=== PATIENT | male | born 1990 | race Caucasian/White ===

== ENCOUNTER 2018-12-01 10:41 | Emergency (ER) | payer SELFPAY ==
--- NOTE | 2018-12-01 11:04 | EDM.PDOC ---
ED HPI GENERAL MEDICAL PROBLEM - General Chief Complaint: Skin Complaint Stated Complaint: SWELLING AND REDNESS OF HANDS Time Seen by Provider: 12/01/18 11:04 Source of Information: Reports: Patient, RN Notes Reviewed History Limitations: Reports: No Limitations - History of Present Illness INITIAL COMMENTS - FREE TEXT/NARRATIVE: Patient is a 28-year-old male who presents to the ED for the evaluation of swollen right hands. The patient notes he has a history of eczema, that he was diagnosed when he was in high school. The patient first noticed this rash to started roughly 3 weeks ago, with some small raised bumps that were itchy, he did use some topical steroid cream and this got better. However last night he states that his hands became increasingly red and swollen. He states he has some betamethasone cream on the rash that he has had from forever ago. He is not sure when he got the last betamethasone, so is unsure as if it is potent or not. He notes his hands to be swollen and painful. He can hardly make a fist with his left hand without being in too much pain. 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 The patient has used several pxho-owo-gaxsweh lotions and creams such as Benadryl allergy cream and hydrocortisone cream with little to no benefit. The patient did take some ibuprofen this morning, 400 mg roughly at 3 AM. He would rate his pain at a 7 out of 10 today. Him and his girlfriend both deny any change of soaps or colognes or otherwise in the household as well. Bilateral Hand Pain Score (Numeric/FACES): 7 - Related Data Allergies Allergy/AdvReac Type Severity Reaction Status Date / Time No Known Allergies Allergy Verified 12/01/18 10:49 Home Meds: Home Meds Albuterol Inhaler. 2 puff INH Q4H PRN 12/01/18 [History] Betamethasone. 12/01/18 [History] Fluticasone Propion/Salmeterol [Fluticasone-Salmeterol 250-50] 1 puff INH BID [History] Levothyroxine 150 mcg PO ACBREAKFAST 12/01/18 [History] Montelukast [Singulair] 10 mg PO DAILY 12/01/18 [History] Sertraline [Zoloft] 100 mg PO DAILY 12/01/18 [History] Testosterone Gel. 12/01/18 [History] Triamcinolone Acetonide [Triamcinolone Acetonide 0.5%] 15 gm .XX ASDIRECTED #1 tube 12/01/18 [Rx] predniSONE [Deltasone] 20 mg PO ASDIRECTED #15 tablet 12/01/18 [Rx] Past Medical History Respiratory History: Reports: Asthma Genitourinary History: Reports: Renal Calculus Other Genitourinary History: Low testosterone Endocrine/Metabolic History: Reports: Hypothyroidism Other Hematologic History: Low testosterone - Past Surgical History Other Male Surgeries/Procedures: Patient had a kidney stone that was stuck removed - required 2 surgeries. Social & Family History - Family History Family Medical History: Noncontributory - Recreational Drug Use Recreational Drug Use: No ED ROS GENERAL - Review of Systems Review Of Systems: See Below Constitutional: Reports: No Symptoms HEENT: Reports: No Symptoms Respiratory: Reports: No Symptoms Cardiovascular: Reports: No Symptoms Endocrine: Reports: No Symptoms GI/Abdominal: Reports: No Symptoms : Reports: No Symptoms Musculoskeletal: Reports: No Symptoms Skin: Reports: Rash (SEE HPI) Neurological: Reports: No Symptoms Psychiatric: Reports: No Symptoms Hematologic/Lymphatic: Reports: No Symptoms Immunologic: Reports: No Symptoms ED EXAM, SKIN/RASH Exam: See Below Exam Limited By: No Limitations General Appearance: Alert, WD/WN, No Apparent Distress Respiratory/Chest: No Respiratory Distress, Lungs Clear, Normal Breath Sounds, No Accessory Muscle Use, Chest Non-Tender Cardiovascular: Normal Peripheral Pulses, Regular Rate, Rhythm, No Murmur Peripheral Pulses: 3+: Radial (L), Radial (R) Extremities: Non-Tender, Normal Capillary Refill, Limited Range of Motion (of hands, d/t pain and swelling.), Increased Warmth (of bothhands), Redness (of both hands) Neurological: Alert, Oriented, Normal Cognition, No Motor/Sensory Deficits Psychiatric: Normal Affect, Normal Mood Skin: Warm, Dry, Intact, Erythema (of both hands), Increased Warmth (of both hands), Rash (raised maculopapular diffuse rash that is itchy, this involves mainly the back of the patient's hands, and he does have some areas of cracking on his left medial thumb. This rash extends to just above both wrists on the dorsal aspect.) Location, Skin: Upper Extremity, Right, Upper Extremity, Left Characteristics: Maculopapular, Patchy, Urticarial, Erythematous Associated features: Warmth, Tenderness, Swelling, Inflammation. No: Induration , Scaling, Crusting, Weeping Course - Vital Signs Last Recorded V/S: Last Vital Signs Temp Pulse 97 12/01/18 10:50 Resp 16 12/01/18 10:50 BP 147/83 H 12/01/18 10:50 Pulse Ox 96 12/01/18 10:50 - Orders/Labs/Meds Meds: Medications Discontinued Medications Generic Name Dose Route Start Last Admin Trade Name Cosmoq PRN Reason Stop Dose Admin Dexamethasone 10 mg 12/01/18 11:19 12/01/18 11:29 Dexamethasone IM 12/01/18 11:20 10 mg ONETIME ONE Administration Ketorolac Tromethamine 30 mg 12/01/18 11:19 12/01/18 11:28 Toradol IM 12/01/18 11:20 30 mg ONETIME ONE Administration - Re-Assessments/Exams Free Text/Narrative Re-Assessment/Exam: 12/01/18 11:31 Patient presents to the ED for evaluation of a rash. The rash is most consistent with a flare of his eczema, however cannot rule out some type of contact dermatitis. Have ordered 10 mg dexamethasone and 30 mg IM Toradol to be given in the ED for initial management, and have provided the patient with a prednisone burst and some triamcinolone cream for the affected areas. He will be directed on the use of the triamcinolone cream and also recommend that he use other hand creams like Cera-ve for moisturization of the area. Departure - Departure Time of Disposition: 11:54 Disposition: Home, Self-Care 01 Condition: Fair Clinical Impression: Eczema of both hands - Discharge Information *PRESCRIPTION DRUG MONITORING PROGRAM REVIEWED*: No *COPY OF PRESCRIPTION DRUG MONITORING REPORT IN PATIENT JEREMI: No Prescriptions: predniSONE [Deltasone] 20 mg PO ASDIRECTED #15 tablet Triamcinolone Acetonide [Triamcinolone Acetonide 0.5%] 15 gm .XX ASDIRECTED #1 tube Instructions: Hand Dermatitis, [address] Referrals: Nery Ha NP [Primary Care Provider] - Forms: ED Department Discharge, ED Return to Work/School Form Additional Instructions: You have been evaluated in the ED today for the rash on your hands. You have been given a 10 mg injection of dexamethasone (steroid) and a 30 mg injection of Toradol (anti-inflammatory) for initial management in the ED. You have been given a prescription for prednisone, please take as directed, you have also been given a prescription for triamcinolone cream please use sparingly to the areas affected on your hands for roughly 2 weeks, then switch to an oyxt-los-hkvmytd hydrocortisone cream. Recommend that you use hand creams like Cera-ve for moisturization of the areas. You may want to try to use gloves at work so that the cream stays on your hand and is not rub off onto things are working on. You may take 600 mg of ibuprofen every 6 hours as needed for further swelling/ pain relief. However the prednisone should provide you pretty good relief in a short amount of time. Please return to the ED if your symptoms should change or worsen.
[2018-12-01] MEDS ORDERED: Ketorolac 30 MG/ML SDV IM ONE (11:19)
[2018-12-01] MEDS ORDERED: Dexamethasone 10 MG/ML SDV IM ONE (11:19)
== END 2018-12-01 11:58 | disposition home or self-care (01) ==
LOC: JD.ED 10:41
DX: L30.9 Dermatitis, unspecified (principal); E03.9 Hypothyroidism, unspecified; J45.909 Unspecified asthma, uncomplicated; Z79.899 Other long term (current) drug therapy
CPT/HCPCS: 96372; 99282; J1100; J1885; 99283

== ENCOUNTER 2019-01-25 06:45 | Emergency (ER) | payer SELFPAY ==
[2019-01-25] MEDS ORDERED: Orphenadrine 100 MG Tab.ER PO STA (07:13)
--- NOTE | 2019-01-25 07:19 | EDM.PDOC ---
ED HPI GENERAL MEDICAL PROBLEM - General Chief Complaint: Neck Problem Stated Complaint: NECK INJURY Time Seen by Provider: 01/25/19 06:55 Source of Information: Reports: Patient, Family (), RN Notes Reviewed History Limitations: Reports: No Limitations - History of Present Illness INITIAL COMMENTS - FREE TEXT/NARRATIVE: The patient states that he was using some resistance bands to work out 2 days ago. He states that he had bands and his back, extending his arms. He developed some pain to his superior left trapezius that night. The pain improved yesterday , but became worse last night, and even worse again this morning. The patient denies any direct trauma to the area. No prior similar symptoms. The patient's states that she has been applying Biofreeze to the area. The patient's PCP is Nery Ha NP. Neck Pain Score (Numeric/FACES): 8 - Related Data Allergies Allergy/AdvReac Type Severity Reaction Status Date / Time No Known Allergies Allergy Verified 01/25/19 06:54 Home Meds: Home Meds Albuterol Inhaler. 2 puff INH Q4H PRN 12/01/18 [History] Levothyroxine 150 mcg PO ACBREAKFAST 12/01/18 [History] Montelukast [Singulair] 10 mg PO DAILY 12/01/18 [History] Sertraline [Zoloft] 100 mg PO DAILY 12/01/18 [History] Orphenadrine [Norflex] 1 tab PO Q12H PRN #14 tab.er 01/25/19 [Rx] Past Medical History Respiratory History: Reports: Asthma Genitourinary History: Reports: Renal Calculus Psychiatric History: Reports: Depression Endocrine/Metabolic History: Reports: Hypothyroidism, Obesity/BMI 30+ - Past Surgical History Male Surgical History: Reports: Lithotripsy (ESWL) (laser lithotripsy x 2) Social & Family History - Family History Family Medical History: Noncontributory - Tobacco Use Smoking Status *Q: Former Smoker Years of Tobacco use: 10 Packs/Tins Daily: 1 Month/Year Tobacco Last Used: Quit 2015 - Alcohol Use Alcohol Use History: Yes Alcohol Use Frequency: Socially - Recreational Drug Use Recreational Drug Use: Yes Drug Use in Last 12 Months: Yes Recreational Drug Type: Reports: Marijuana/Hashish (last smoked Apr 2018) - Living Situation & Occupation Living situation: Reports: , with Spouse 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 ED EXAM, GENERAL - Physical Exam Exam: See Below Exam Limited By: No Limitations General Appearance: Alert, WD/WN, No Apparent Distress Eye Exam: Bilateral Eye: EOMI, Normal Inspection Ears: Normal External Exam, Hearing Grossly Normal Nose: Normal Inspection Throat/Mouth: Normal Inspection, Normal Lips, Normal Voice, No Airway Compromise Head: Atraumatic, Normocephalic Neck: Non-Tender, Full Range of Motion, Other (The patient is more comfortable with his head tilted to the right, but he is able to straighten his neck) Respiratory/Chest: No Respiratory Distress, Lungs Clear, Normal Breath Sounds, No Accessory Muscle Use Cardiovascular: Normal Peripheral Pulses, Regular Rate, Rhythm, No Edema, No Gallop, No JVD, No Murmur, No Rub Peripheral Pulses: 4+: Radial (L), Radial (R) GI/Abdominal: Normal Bowel Sounds, Soft, Non-Tender, No Organomegaly, No Distention, No Abnormal Bruit, No Mass, Other (Obese) (Male) Exam: Deferred Rectal (Males) Exam: Deferred Back Exam: Normal Inspection, Full Range of Motion, NT Extremities: Normal Range of Motion, No Pedal Edema, Normal Capillary Refill, Other (Muscle spasm noted to the upper left trapezius muscle) Neurological: Alert, Oriented, Normal Cognition, No Motor/Sensory Deficits Psychiatric: Normal Affect Skin Exam: Warm, Dry, Intact, Normal Color, No Rash Course - Vital Signs Last Recorded V/S: Last Vital Signs Temp 35.9 C 01/25/19 06:50 Pulse 80 01/25/19 06:50 Resp 16 01/25/19 06:50 BP 151/89 H 01/25/19 06:50 Pulse Ox - Orders/Labs/Meds Meds: Medications Discontinued Medications Generic Name Dose Route Start Last Admin Trade Name Freq PRN Reason Stop Dose Admin Orphenadrine Citrate 100 mg 01/25/19 07:13 01/25/19 07:24 Norflex PO 01/25/19 07:14 100 mg ONETIME STA Administration - Re-Assessments/Exams Free Text/Narrative Re-Assessment/Exam: 01/25/19 07:14 By both history and physical examination, the patient is suffering from upper left trapezius muscle spasm. I do not see an indication for an imaging study. I will start the patient on Norflex, and have him take irok-lob-eflbnjz ibuprofen in addition. Departure - Departure Time of Disposition: 07:15 Disposition: Home, Self-Care 01 Condition: Good Clinical Impression: Back muscle spasm - Discharge Information *PRESCRIPTION DRUG MONITORING PROGRAM REVIEWED*: Not Applicable *COPY OF PRESCRIPTION DRUG MONITORING REPORT IN PATIENT JEREMI: Not Applicable Prescriptions: Orphenadrine [Norflex] 1 tab PO Q12H PRN #14 tab.er PRN Reason: Muscle Spasm Instructions: Muscle Cramps and Spasms, [id number] Referrals: Nery Ha NP [Primary Care Provider] - Forms: ED Department Discharge, ED Return to Work/School Form Additional Instructions: You were seen in the emergency room for pain in the back of your upper left shoulder, that developed after working out. Based on your history and physical examination, you are suffering from a muscle spasm of your trapezius muscle. You have been started on the muscle relaxant Norflex. A prescription for Norflex has been sent to the [facility], located in the [facility] grocery store. Take one tablet of Norflex every 12 hours, starting this evening , 01/25/2019, as prescribed. In addition to Norflex, we recommend that you take khbe-ucw-xehaakd ibuprofen, 2 -3 tablets (400-600 mg) every 8 hours, with food. A note for work has been provided to you. If any other problems, please do not hesitate to return to the ER.
== END 2019-01-25 07:35 | disposition home or self-care (01) ==
LOC: JD.ED 06:45
DX: M62.830 Muscle spasm of back (principal); F32.9 Major depressive disorder, single episode, unspecified; E66.9 Obesity, unspecified; J45.909 Unspecified asthma, uncomplicated; E03.9 Hypothyroidism, unspecified; Z79.899 Other long term (current) drug therapy; Z87.891 Personal history of nicotine dependence
CPT/HCPCS: 99283; A9270

== ENCOUNTER 2019-04-19 16:57 | Emergency (ER) | payer OTHER, BC ==
[2019-04-19] MEDS ORDERED: Acetaminophen/oxyCODONE 325-5 MG Tab PO ONE (17:08)
[2019-04-19] MEDS ORDERED: Ondansetron 4 MG Tab.DIS PO ONE (17:08)
--- NOTE | 2019-04-19 17:10 | EDM.PDOC ---
ED HPI GENERAL MEDICAL PROBLEM - General Chief Complaint: Upper Extremity Injury/Pain Stated Complaint: RT HAND INJURY Time Seen by Provider: 04/19/19 17:00 Source of Information: Reports: Patient History Limitations: Reports: No Limitations - History of Present Illness INITIAL COMMENTS - FREE TEXT/NARRATIVE: 28-year-old male presents for evaluation and treatment and injury to the right hand. Patient reports he was at work. States that he crushed his right hand under 200 pound auger. Currently complains of pain to the right fifth finger. He is reporting pain, swelling and numbness to the right fifth finger. Occurred about half an hour prior to arrival. No obvious open fractures. He reports pain to the entire fifth finger. Patient is right-handed. Tetanus is up-to-date. Right Hand Pain Score (Numeric/FACES): 10 - Related Data Allergies Allergy/AdvReac Type Severity Reaction Status Date / Time blueberry Allergy Other Verified 04/19/19 17:04 walnut Allergy Other Verified 04/19/19 17:04 Home Meds: Home Meds Albuterol Inhaler. 2 puff INH Q4H PRN 12/01/18 [History] Levothyroxine 150 mcg PO ACBREAKFAST 12/01/18 [History] Montelukast [Singulair] 10 mg PO DAILY 12/01/18 [History] Sertraline [Zoloft] 100 mg PO DAILY 12/01/18 [History] Fluticasone/Salmeterol [Advair Hfa 230-21 Mcg Inhaler] 1 puff PO BID 04/19/19 [ History] Past Medical History Respiratory History: Reports: Asthma Genitourinary History: Reports: Renal Calculus Other Genitourinary History: Low testosterone Psychiatric History: Reports: Depression Endocrine/Metabolic History: Reports: Hypothyroidism, Obesity/BMI 30+ Other Hematologic History: Low testosterone - Past Surgical History Male Surgical History: Reports: Lithotripsy (ESWL) (laser lithotripsy x 2) Social & Family History - Family History Family Medical History: Noncontributory - Tobacco Use Smoking Status *Q: Current Every Day Smoker Years of Tobacco use: 15 Packs/Tins Daily: 1 - Caffeine Use Caffeine Use: Reports: Coffee, Energy Drinks, Soda - Recreational Drug Use Recreational Drug Use: No - Living Situation & Occupation Living situation: Reports: , with Spouse 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) Review of Systems - Review of Systems Review Of Systems: See Below Musculoskeletal: Reports: Hand Pain (Right hand fifth finger), Other (swelling right fifth digit) Skin: Denies: Wound Neurological: Reports: Numbness (Right hand fifth finger) ED EXAM, GENERAL - Physical Exam Exam: See Below Exam Limited By: No Limitations General Appearance: Alert, WD/WN, No Apparent Distress, Obese Respiratory/Chest: No Respiratory Distress Cardiovascular: Normal Peripheral Pulses, Regular Rate, Rhythm Peripheral Pulses: 3+: Radial (R) Extremities: Normal Inspection (No obvious deformities), Normal Capillary Refill , Other (Reports pain to the entire right fifth digit. Has full range of motion of the finger; swelling to the finger. Reports decreased sensation to light touch.) Course - Vital Signs Last Recorded V/S: Last Vital Signs Temp 97.2 F 04/19/19 17:03 Pulse 93 04/19/19 17:03 Resp 15 04/19/19 17:03 BP 127/89 04/19/19 17:03 Pulse Ox 97 04/19/19 17:03 - Orders/Labs/Meds Orders: Active Orders 24 hr Category Date Time Status Hand Comp Min 3V Rt [CR] Stat Exams 04/19/19 17:08 Taken Durable Medical Equipment for Discharge [DME for Oth 04/19/19 18:01 Ordered Discharge] [COMM] Stat Meds: Medications Discontinued Medications Generic Name Dose Route Start Last Admin Trade Name Cosmoq PRN Reason Stop Dose Admin Ondansetron HCl 4 mg 04/19/19 17:08 04/19/19 17:13 Zofran Odt PO 04/19/19 17:09 4 mg ONETIME ONE Administration Oxycodone/Acetaminophen 2 tab 04/19/19 17:08 04/19/19 17:12 Percocet 325-5 Mg PO 04/19/19 17:09 2 tab ONETIME ONE Administration - Radiology Interpretation Free Text/Narrative:: X-ray of the right hand shows a nondisplaced fracture of the right hand distal fifth phalanx. reviewed by myself and Dr. Serrano. Formal radiology read pending. - Re-Assessments/Exams Free Text/Narrative Re-Assessment/Exam: 04/19/19 18:10 Reviewed the x-ray results with the patient. Will place an aluminum form splint and karlie tape the fifth of fourth digits together. They request a sling as he' ll be walking around [place] tomorrow and they would like something help with elevation. Will discharge him home. Recommend follow-up with orthopedics. Discharge instructions as documented. Departure - Departure Time of Disposition: 18:19 Disposition: Home, Self-Care 01 Condition: Good Clinical Impression: Distal phalanx or phalanges, closed fracture - Discharge Information *PRESCRIPTION DRUG MONITORING PROGRAM REVIEWED*: No *COPY OF PRESCRIPTION DRUG MONITORING REPORT IN PATIENT JEREMI: No Referrals: Nery Ha, [employer] [employer] [facility] [Primary Care Provider] - Forms: ED Department Discharge, ED Return to Work/School Form Additional Instructions: Keep the splint on and karlie taped to the fourth finger at all times until seen by ortho. Follow-up with orthopedics in 2 weeks. Here in [place] recommend Dr. Benito. Call [phone] to schedule with him. His partner Dr. Gray from [place] also comes and is a hand specialist. You may also see him when he is here, call [facility] to schedule with him. Cbub-kjj-hjtjxli Tylenol or Motrin as needed for pain relief. Ice and elevate the finger is much as you are able to. Please return to ER if your symptoms change or worsen. - My Orders Last 24 Hours: My Active Orders 04/19/19 17:08 Hand Comp Min 3V Rt [CR] Stat 04/19/19 18:01 Durable Medical Equipment for Discharge [DME for Discharge] [COMM] Stat - Assessment/Plan Last 24 Hours: My Active Orders 04/19/19 17:08 Hand Comp Min 3V Rt [CR] Stat 04/19/19 18:01 Durable Medical Equipment for Discharge [DME for Discharge] [COMM] Stat
--- NOTE | 2019-04-22 07:15 | CR ---
Right hand: Four views of the right hand were obtained. Comparison: No previous hand study. Joint spaces are preserved. Tuft fracture noted within the distal 5th finger. Alignment remains close to anatomic. No additional fracture or other abnormality is seen. Impression: 1. Tuft fracture within the distal 5th finger. Diagnostic code #3
== END 2019-04-19 18:30 | disposition home or self-care (01) ==
LOC: JD.ED 16:57
DX: S62.666A Nondisplaced fracture of distal phalanx of right little finger, initial encounter for closed fracture (principal); J45.909 Unspecified asthma, uncomplicated; E03.9 Hypothyroidism, unspecified; F32.9 Major depressive disorder, single episode, unspecified; E66.9 Obesity, unspecified; Z68.36 Body mass index [BMI] 36.0-36.9, adult; F17.210 Nicotine dependence, cigarettes, uncomplicated; Z91.018 Allergy to other foods; Z79.899 Other long term (current) drug therapy; W23.0XXA Caught, crushed, jammed, or pinched between moving objects, initial encounter; Y99.0 Civilian activity done for income or pay
CPT/HCPCS: 73130; 99283; A9270

== ENCOUNTER 2019-10-18 08:36 | Emergency (ER) | payer BC, OTHER ==
[2019-10-18] MEDS ORDERED: Sodium Chloride 0.9% 10 ML Syringe FLUSH PRN (09:14)
[2019-10-18] MEDS ORDERED: diphenhydrAMINE 50 MG/ML SDV IVPUSH ONE (09:15)
[2019-10-18] MEDS ORDERED: Ketorolac 30 MG/ML SDV IVPUSH ONE (09:15)
[2019-10-18] MEDS ORDERED: methylPREDNISolone Sodium Succinate 125 MG/2 ML SDV IVPUSH ONE (09:15)
[2019-10-18] MEDS ORDERED: Albuterol/Ipratropium 3.0-0.5 MG/3 ML Neb Soln NEB ONE (09:15)
[2019-10-18] MEDS ORDERED: Metoclopramide 10 MG/2 ML SDV IVPUSH ONE (09:15)
--- NOTE | 2019-10-18 10:33 | CT ---
Head CT Technique: Multiple axial sections through the brain were obtained. Intravenous contrast was not utilized. Comparison: No prior intracranial imaging is available. Findings: Ventricles along with basal cisterns and sulci over the convexities are within normal limits for the patient's age. No abnormal parenchymal densities are seen. No evidence of intracranial hemorrhage. No midline shift or mass effect is seen. Mild areas of mucosal thickening is seen within the ethmoid sinuses. Mastoid sinuses that are seen appear clear. No acute calvarial abnormality is appreciated. Impression: 1. Mild mucosal thickening within the ethmoid sinuses. 2. No acute intracranial abnormality is appreciated. Diagnostic code #2 This report was dictated in MD[facility]
--- NOTE | 2019-10-18 10:42 | EDM.PDOC ---
ED HPI GENERAL MEDICAL PROBLEM - General Chief Complaint: Headache Stated Complaint: HEADACHE X 2 DAYS Time Seen by Provider: 10/18/19 08:57 Source of Information: Reports: Patient History Limitations: Reports: No Limitations - History of Present Illness INITIAL COMMENTS - FREE TEXT/NARRATIVE: The patient presents with a headache. The pain is in the front of his head. It comes and goes. Standing upright makes it worse. He has a history of headaches but this one seems worse and different. He has no nausea or vomiting. He has no numbness or weakness. He has no photophobia. He has no fever, chills or cough. He has no sinus congestion or runny nose. He does have asthma and he has some shortness of breath with wheezing. Onset: Gradual Duration: Day(s): Location: Reports: Head Quality: Reports: Ache Severity: Severe Improves with: Reports: None Worsens with: Reports: None Associated Symptoms: Reports: Headaches, Shortness of Breath. Denies: Chest Pain, Cough, Fever/Chills, Nausea/Vomiting Headache Pain Score (Numeric/FACES): 5 - Related Data Allergies Allergy/AdvReac Type Severity Reaction Status Date / Time blueberry Allergy Other Verified 10/18/19 08:58 walnut Allergy Other Verified 10/18/19 08:58 Home Meds: Home Meds Albuterol Inhaler. 2 puff INH Q4H PRN 12/01/18 [History] Montelukast [Singulair] 10 mg PO DAILY 12/01/18 [History] Fluticasone/Salmeterol [Advair Hfa 230-21 Mcg Inhaler] 1 puff PO BID 04/19/19 [ History] buPROPion HCl [Wellbutrin Xl] 300 mg PO DAILY 10/18/19 [History] predniSONE [Prednisone] 40 mg PO DAILY #10 tablet 10/18/19 [Rx] Past Medical History Respiratory History: Reports: Asthma Genitourinary History: Reports: Renal Calculus Other Genitourinary History: Low testosterone Psychiatric History: Reports: Depression Endocrine/Metabolic History: Reports: Hypothyroidism, Obesity/BMI 30+ Other Hematologic History: Low testosterone - Past Surgical History Male Surgical History: Reports: Lithotripsy (ESWL) Social & Family History - Family History Family Medical History: Noncontributory - Tobacco Use Smoking Status *Q: Current Every Day Smoker Years of Tobacco use: 4 Packs/Tins Daily: 0.5 - Caffeine Use Caffeine Use: Reports: Coffee, Energy Drinks, Soda - Living Situation & Occupation Living situation: Reports: , with Spouse 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 Denies: Cough Cardiovascular: Reports: No Symptoms Endocrine: Reports: No Symptoms GI/Abdominal: Reports: No Symptoms : Reports: No Symptoms Musculoskeletal: Reports: No Symptoms - Physical Exam Exam: See Below Exam Limited By: No Limitations General Appearance: Alert, No Apparent Distress Ears: Normal External Exam Nose: Normal Inspection Head Exam: Atraumatic, Normocephalic Neck: Normal Inspection Respiratory/Chest: No Respiratory Distress, Decreased Breath Sounds, Wheezing Cardiovascular: Regular Rate, Rhythm, No Edema, No Murmur GI/Abdominal: Soft, Non-Tender, No Organomegaly, No Mass Neuro Exam (Abbreviated): Alert, Oriented, No Motor/Sensory Deficits Course - Vital Signs Last Recorded V/S: Last Vital Signs Temp 97.8 F 10/18/19 08:55 Pulse 73 10/18/19 08:55 Resp 16 10/18/19 08:55 BP 135/88 10/18/19 08:55 Pulse Ox 98 10/18/19 09:30 - Orders/Labs/Meds Orders: Active Orders 24 hr Category Date Time Status Peripheral IV Care [RC] . DIRECTED Care 10/18/19 09:14 Active RT Aerosol Therapy [RC] ASDIRECTED Care 10/18/19 09:16 Active Sodium Chloride 0.9% [Saline Flush] Med 10/18/19 09:14 Active 10 ml FLUSH ASDIRECTED PRN Peripheral IV Insertion Adult [OM.PC] Routine Oth 10/18/19 09:14 Ordered Medication Orders Sodium Chloride (Saline Flush) 10 ml FLUSH ASDIRECTED PRN PRN Reason: Keep Vein Open Last Admin: 10/18/19 09:27 Dose: 10 ml Meds: Medications Generic Name Dose Route Start Last Admin Trade Name Freq PRN Reason Stop Dose Admin Sodium Chloride 10 ml 10/18/19 09:14 10/18/19 09:27 Saline Flush FLUSH 10 ml ASDIRECTED PRN Administration Keep Vein Open Discontinued Medications Generic Name Dose Route Start Last Admin Trade Name Lanre PRN Reason Stop Dose Admin Albuterol/Ipratropium 3 ml 10/18/19 09:15 10/18/19 09:29 Duoneb 3.0-0.5 Mg/3 Ml NEB 10/18/19 09:16 3 ml ONETIME ONE Administration Diphenhydramine HCl 50 mg 10/18/19 09:15 10/18/19 09:27 Benadryl IVPUSH 10/18/19 09:16 50 mg ONETIME ONE Administration Ketorolac Tromethamine 30 mg 10/18/19 09:15 10/18/19 09:27 Toradol IVPUSH 10/18/19 09:16 30 mg ONETIME ONE Administration Methylprednisolone Sodium Succinate 125 mg 10/18/19 09:15 10/18/19 09:27 Solu-Medrol IVPUSH 10/18/19 09:16 125 mg ONETIME ONE Administration Metoclopramide HCl 10 mg 10/18/19 09:15 10/18/19 09:27 Reglan IVPUSH 10/18/19 09:16 10 mg ONETIME ONE Administration - Re-Assessments/Exams Free Text/Narrative Re-Assessment/Exam: 10/18/19 10:45 I ordered an IV saline lock, reglan 10mg IV, toradol 30mg IV, benadryl 50mg IV, duoneb, solu-medrol 125mg IV and a CT of his head. His CT shows mild mucosal thickening within the ethmoid sinuses. No acute intracranial abnormality is appreciated. He feels better. 10/18/19 10:49 I will discharge him home. Departure - Departure Time of Disposition: 10:50 Disposition: Home, Self-Care 01 Condition: Good Clinical Impression: Migraine Asthma exacerbation Qualifiers: Asthma severity: mild Asthma persistence: unspecified Qualified Code(s): J45.901 - Unspecified asthma with (acute) exacerbation - Discharge Information *PRESCRIPTION DRUG MONITORING PROGRAM REVIEWED*: Not Applicable *COPY OF PRESCRIPTION DRUG MONITORING REPORT IN PATIENT JEREMI: Not Applicable Prescriptions: predniSONE [Prednisone] 40 mg PO DAILY #10 tablet Referrals: Mi Franks MD [Primary Care Provider] - 1 Week Forms: ED Department Discharge, ED Return to Work/School Form Additional Instructions: Take your medication as prescribed and I am adding prednisone 40mg daily for 5 days. Please return if you are worse. Sepsis Event Note - Evaluation Sepsis Screening Result: No Definite Risk - Focused Exam Vital Signs: Vital Signs Temp Pulse Resp BP Pulse Ox Pulse Ox 10/18/19 09:30 98 10/18/19 08:55 97.8 F 73 16 135/88 97 Date Exam was Performed: 10/18/19 Time Exam was Performed: 10:49 - My Orders Last 24 Hours: My Active Orders 10/18/19 09:14 Peripheral IV Care [RC] . DIRECTED Sodium Chloride 0.9% [Saline Flush] 10 ml FLUSH ASDIRECTED PRN Peripheral IV Insertion Adult [OM.PC] Routine 10/18/19 09:16 RT Aerosol Therapy [RC] ASDIRECTED - Assessment/Plan Last 24 Hours: My Active Orders 10/18/19 09:14 Peripheral IV Care [RC] . DIRECTED Sodium Chloride 0.9% [Saline Flush] 10 ml FLUSH ASDIRECTED PRN Peripheral IV Insertion Adult [OM.PC] Routine 10/18/19 09:16 RT Aerosol Therapy [RC] ASDIRECTED
== END 2019-10-18 11:08 | disposition home or self-care (01) ==
LOC: JD.ED 08:36
DX: G43.909 Migraine, unspecified, not intractable, without status migrainosus (principal); J45.901 Unspecified asthma with (acute) exacerbation; F32.9 Major depressive disorder, single episode, unspecified; F17.210 Nicotine dependence, cigarettes, uncomplicated; E03.9 Hypothyroidism, unspecified; E66.9 Obesity, unspecified; Z68.34 Body mass index [BMI] 34.0-34.9, adult; Z91.018 Allergy to other foods; Z79.899 Other long term (current) drug therapy
CPT/HCPCS: 70450; 94640; 96374; 96375; 99285; J1200; J1885; J2765; J2930; 99284; J7620-GY